=== PATIENT | female | born 1950 | race Caucasian/White ===

== ENCOUNTER 2025-02-09 21:10 | Inpatient (IN) | payer MEDICARE, BC ==
[~2025-02-09] VITALS: Ht 162.6 cm; Wt 45.8 kg
[2025-02-09 22:39] LABS: APPEARANCE,URINE CLEAR (CLEAR); BLOOD, URINE TRACE-INTA Ery/uL (NEGATIVE); LEUKOCYTE ESTERASE ,URINE NEGATIVE (NEGATIVE); NITRITE, URINE NEGATIVE (NEGATIVE); UGLUCOSE NEGATIVE (NEGATIVE)
[2025-02-09 22:41] LABS: PLATELET COUNT (AUTO) 401 K/uL (150-450); RED BLOOD CELL COUNT(AUTO) 3.99 MIL/uL (4.0-5.2); RED CELL DISTRIBUTION WIDTH 13.2 % (11.5-15.0); WHITE BLOOD COUNT (AUTO) 19.7 K/uL (4.3-11.0)
[2025-02-09 22:49] LABS: ADD URINE CULTURE NO
[2025-02-09 22:51] LABS: CALCIUM, SERUM 8.8 mg/dL (8.5-10.1); CREATININE 0.5 mg/dL (0.6-1.3); SODIUM SERUM 129 mmol/L (136-145); UREA NITROGEN, BLOOD 15 mg/dL (7-18)
[2025-02-09 22:55] LABS: ASPARTATE AMINOTRANSFERASE 13 U/L (15-37); TOTAL PROTEIN, SERUM 7.2 g/dL (6.4-8.2)
[2025-02-09 22:56] LABS: ALCOHOL, BLOOD < 3 mg/dL (0-10)
[2025-02-09 23:00] LABS: LACTIC ACID 1.1 mmol/L (0.4-2.0)
[2025-02-09 23:17] LABS: AMPHETAMINE, URINE NEGATIVE (NEGATIVE); BARBITURATE, URINE NEGATIVE (NEGATIVE); BENZODIAZEPINE, URINE NEGATIVE (NEGATIVE); CANNABINOID, URINE NEGATIVE (NEGATIVE); COCCAINE, URINE NEGATIVE (NEGATIVE); OPIATE, URINE NEGATIVE (NEGATIVE)
[2025-02-09] MEDS ORDERED: CEFEPIME 1 GM VIAL ONE (23:37)
[2025-02-09] MEDS: CEFEPIME 1 GM in IV D5W 50 ML IV ONE (23:40)
[2025-02-09] MEDS: IV NS 0.9% 1,000 ML BAG IV ONE (23:40)
[2025-02-09] MEDS: LIDOCAINE 1% INJ 50 ML MDV IJ ONE (23:40)
[2025-02-10] VITALS (7 sets, daily range): BP systolic 133–169; BP diastolic 57–79; TEMP 97.4–102.1; O2SAT 92–99
[2025-02-10] MEDS ORDERED: DOSING PER PHARMACY-CEFEPIME IVPB XX PRN
[2025-02-10] MEDS ORDERED: MAGNESIUM HYDROXIDE 30 ML UDC PO PRN
[2025-02-10] MEDS ORDERED: ONDANSETRON HCL/PF 4 MG/2 ML VIAL IVP PRN
[2025-02-10] MEDS ORDERED: MAG HYDROX/AL HYDROX/SIMETH 30 ML UDC PO PRN
[2025-02-10] MEDS: ENOXAPARIN SODIUM 40 MG/0.4 ML DISP.SYRIN SQ SCH (01:01)
[2025-02-10] MEDS: ACETAMINOPHEN 325 MG TABLET PO PRN (01:06)
[2025-02-10] MEDS: IV NS 0.9% 1,000 ML IV PRN (01:13)
[2025-02-10] MEDS: MORPHINE SULFATE INJ 2 MG/ML DISP.SYRIN IV PRN (02:36)
[2025-02-10] MEDS: PANTOPRAZOLE 40 MG TABLET.DR PO SCH (07:40)
[2025-02-10] MEDS: CEFEPIME 1 GM in IV D5W 50 ML IV SCH (08:38)
[2025-02-10] MEDS ORDERED: CYAN100T9 PO (08:55)
[2025-02-10] MEDS ORDERED: MULT-594 PO (08:55)
[2025-02-10] MEDS ORDERED: ACET-868 PO (08:55)
[2025-02-10] MEDS ORDERED: ASPI-966 PO (08:55)
[2025-02-10] MEDS ORDERED: ASCO-352 PO (08:55)
[2025-02-10] MEDS ORDERED: DOSING PER PHARMACY-VANCOMYCIN IV XX PRN (11:30)
[2025-02-10] MEDS: VANCOMYCIN HCL 1.25 GM in IV D5W 250 ML IV ONE (12:53)
[2025-02-10] MEDS: HYDROMORPHONE 1 MG/1 ML DISP.SYRIN IV PRN (15:04)
[2025-02-10] MEDS: POTASSIUM CHLORIDE 20 MEQ POWDER PACKET PO ONE (20:06)
[2025-02-10 21:08] LABS: PLATELET COUNT (AUTO) 379 K/uL (150-450); RED BLOOD CELL COUNT(AUTO) 3.76 MIL/uL (4.0-5.2); RED CELL DISTRIBUTION WIDTH 13.3 % (11.5-15.0); WHITE BLOOD COUNT (AUTO) 18.3 K/uL (4.3-11.0)
[2025-02-10 21:35] LABS: PHOSPHORUS 1.8 mg/dL (2.5-4.9)
[2025-02-10 21:36] LABS: ASPARTATE AMINOTRANSFERASE 17.0 U/L (15-37); CALCIUM, SERUM 8.3 mg/dL (8.5-10.1); CREATININE 0.6 mg/dL (0.6-1.3); PHOSPHORUS 1.8 mg/dL (2.5-4.9); SODIUM SERUM 130.0 mmol/L (136-145); TOTAL PROTEIN, SERUM 6.4 g/dL (6.4-8.2); UREA NITROGEN, BLOOD 14.0 mg/dL (7-18)
[2025-02-11] VITALS: TEMP 98.4
[2025-02-11] MEDS: VANCOMYCIN 500 MG in IV D5W 100ml IV SCH (00:10)
[2025-02-11 07:21] LABS: PLATELET COUNT (AUTO) 357 K/uL (150-450); RED BLOOD CELL COUNT(AUTO) 3.70 MIL/uL (4.0-5.2); RED CELL DISTRIBUTION WIDTH 13.1 % (11.5-15.0); WHITE BLOOD COUNT (AUTO) 15.1 K/uL (4.3-11.0)
[2025-02-11 07:22] LABS: APPEARANCE,URINE CLEAR (CLEAR); BLOOD, URINE 1+ Ery/uL (NEGATIVE); LEUKOCYTE ESTERASE ,URINE NEGATIVE (NEGATIVE); NITRITE, URINE NEGATIVE (NEGATIVE); UGLUCOSE NEGATIVE (NEGATIVE)
[2025-02-11 07:34] LABS: CREATININE, URINE 70.6 MG/DL (30.0-125.0); URINE SODIUM, RANDOM 10.0 mmol/l (40-220); URINE TOTAL PROTEIN 110.6 mg/dL (0-11.9)
[2025-02-11 07:41] LABS: ASPARTATE AMINOTRANSFERASE 19.0 U/L (15-37); CALCIUM, SERUM 8.2 mg/dL (8.5-10.1); CREATININE 0.5 mg/dL (0.6-1.3); PHOSPHORUS 1.9 mg/dL (2.5-4.9); SODIUM SERUM 132.0 mmol/L (136-145); TOTAL PROTEIN, SERUM 6.1 g/dL (6.4-8.2); UREA NITROGEN, BLOOD 11.0 mg/dL (7-18)
[2025-02-11 08:00] VITALS: BP 133/51; TEMP 98.1; O2SAT 95
[2025-02-11 09:54] LABS: ADD URINE CULTURE NO; SQUAMOUS EPITHELIAL CELL,UR Few /HPF (None Seen)
[2025-02-11 09:57] LABS: EOSINOPHIL,URINE None Seen
[2025-02-11] MEDS: LIDOCAINE 1% INJ 50 ML MDV IJ ONE (10:03)
[2025-02-11] MEDS ORDERED: POTASSIUM PHOSPHATE MM 15 MMOL in IV NS 0.9% 250 ML IV SCH (14:00)
[2025-02-11] MEDS: POTASSIUM PHOSPHATE MM 7.5 MMOL in IV NS 0.9% 100 ML IV SCH (14:57)
[2025-02-11] MEDS: POTASSIUM CHLORIDE 20 MEQ TAB.PRT.SR PO ONE (14:57)
[2025-02-11 16:00] VITALS: BP 143/60; TEMP 98.4; O2SAT 94
[2025-02-11] MEDS: VALACYCLOVIR HCL 500 MG TABLET PO SCH (16:22)
[2025-02-11 17:11] LABS: LDL 48.0 mg/dL (0-99)
[2025-02-11] MEDS: ERYTHROMYCIN BASE OPHTH 3.5 GM TUBE RIGHTEYE SCH (18:34)
[2025-02-11 19:40] LABS: PLATELET COUNT (AUTO) 393 K/uL (150-450); RED BLOOD CELL COUNT(AUTO) 3.80 MIL/uL (4.0-5.2); RED CELL DISTRIBUTION WIDTH 13.1 % (11.5-15.0); WHITE BLOOD COUNT (AUTO) 16.7 K/uL (4.3-11.0)
[2025-02-11 19:59] LABS: CALCIUM, SERUM 8.4 mg/dL (8.5-10.1); CREATININE 0.6 mg/dL (0.6-1.3); SODIUM SERUM 129.0 mmol/L (136-145); UREA NITROGEN, BLOOD 13.0 mg/dL (7-18)
[2025-02-11 20:00] VITALS: BP 136/76; TEMP 100.6; O2SAT 91
[2025-02-11] MEDS: ATORVASTATIN 40 MG TABLET PO SCH (21:19)
[2025-02-12] VITALS: BP 128/68; TEMP 97.5; O2SAT 97
[2025-02-12 04:04] VITALS: BP 134/68; TEMP 97.5; O2SAT 97
[2025-02-12 08:59] VITALS: BP 137/65; TEMP 97.7; O2SAT 97
[2025-02-12] MEDS: VANCOMYCIN 1 GM in IV D5W 250ml IV SCH (12:32)
[2025-02-12] MEDS ORDERED: IOHEXOL-350 100 ML VIAL IV ONE (16:14)
[2025-02-12] MEDS ORDERED: IV NS 0.9% 250 ML IV ONE (16:14)
[2025-02-12 16:38] VITALS: BP 140/60; TEMP 97.5; O2SAT 94
[2025-02-12 20:00] VITALS: BP 148/66; TEMP 97.9; O2SAT 95
[2025-02-13] VITALS: BP 157/76; TEMP 97.5; O2SAT 95
[2025-02-13 04:00] VITALS: BP 153/58; TEMP 98.1; O2SAT 98
[2025-02-13 06:07] LABS: HSV 1 IgG, TYPE SPECIFIC Reactive (Non Reactive)
[2025-02-13 06:42] LABS: PLATELET COUNT (AUTO) 397 K/uL (150-450); RED BLOOD CELL COUNT(AUTO) 4.31 MIL/uL (4.0-5.2); RED CELL DISTRIBUTION WIDTH 13.6 % (11.5-15.0); WHITE BLOOD COUNT (AUTO) 18.4 K/uL (4.3-11.0)
[2025-02-13 07:07] LABS: CALCIUM, SERUM 8.5 mg/dL (8.5-10.1); CREATININE 0.7 mg/dL (0.6-1.3); PHOSPHORUS 1.8 mg/dL (2.5-4.9); SODIUM SERUM 133.0 mmol/L (136-145); UREA NITROGEN, BLOOD 13.0 mg/dL (7-18)
[2025-02-13 08:00] VITALS: BP 155/71; TEMP 98.1
[2025-02-13 08:07] LABS: FOLIC ACID 15.2 ng/mL (>3.0)
[2025-02-13] MEDS: POTASSIUM CHLORIDE 20 MEQ TAB.PRT.SR PO SCH (11:35)
[2025-02-13 12:00] VITALS: BP 154/70; TEMP 99
[2025-02-13] MEDS: K PHOS NEUTRAL 250 MG TABLET PO ONE (15:35)
[2025-02-13 20:00] VITALS: BP 153/74; TEMP 97.9; O2SAT 95; O2SAT 96
[2025-02-14] VITALS: BP 155/84; TEMP 97.5; O2SAT 95
[2025-02-14 04:00] VITALS: BP_SYST 155; BP_SYST 158; BP_DIAS 73; TEMP 98.2; O2SAT 95
[2025-02-14 07:03] LABS: PLATELET COUNT (AUTO) 473 K/uL (150-450); RED BLOOD CELL COUNT(AUTO) 4.11 MIL/uL (4.0-5.2); RED CELL DISTRIBUTION WIDTH 13.4 % (11.5-15.0); WHITE BLOOD COUNT (AUTO) 15.1 K/uL (4.3-11.0)
[2025-02-14 07:19] LABS: CALCIUM, SERUM 8.7 mg/dL (8.5-10.1); CREATININE 0.6 mg/dL (0.6-1.3); PHOSPHORUS 2.4 mg/dL (2.5-4.9); SODIUM SERUM 133.0 mmol/L (136-145); UREA NITROGEN, BLOOD 10.0 mg/dL (7-18)
[2025-02-14 07:30] VITALS: BP 161/73; TEMP 98.1; O2SAT 96
[2025-02-14] MEDS: POTASSIUM CL. PREMIX PERIPHER. 50 ML IV SCH (11:53)
[2025-02-14] MEDS: VANCOMYCIN 750 MG in IV D5W 250 ML IV SCH (14:34)
[2025-02-14 15:07] LABS: *HSV 1 DNA PCR Negative (Negative); *HSV 2 DNA PCR Negative (Negative)
[2025-02-14] MEDS ORDERED: K PHOS NEUTRAL 250 MG TABLET PO SCH (15:30)
[2025-02-14] MEDS: POTASSIUM CHLORIDE 20 MEQ TAB.PRT.SR PO ONE (18:27)
[2025-02-15 11:08] LABS: METHYLMALONIC ACID 144.0 nmol/L (0-378)
== END 2025-02-14 20:00 | DRG 85 ==
LOC: ER 21:19 → TELE 23:32 → MED 02-10 15:10 → TELE 02-11 15:33
PROVIDERS: ADMIT Nurse Practitioner Family
PROC: 0PSHXZZ Reposition Right Radius, External Approach (ICD-10-PCS; 2025-02-09)
PROC: 0PSHXZZ Reposition Right Radius, External Approach (ICD-10-PCS; principal; 2025-02-11)
DX: S06.6X0A Traumatic subarachnoid hemorrhage without loss of consciousness, initial encounter (principal); G92.8 Other toxic encephalopathy; S52.551A Other extraarticular fracture of lower end of right radius, initial encounter for closed fracture; G45.9 Transient cerebral ischemic attack, unspecified; E44.1 Mild protein-calorie malnutrition; E87.1 Hypo-osmolality and hyponatremia; Z68.1 Body mass index [BMI] 19.9 or less, adult; S52.611A Displaced fracture of right ulna styloid process, initial encounter for closed fracture; R40.2142 Coma scale, eyes open, spontaneous, at arrival to emergency department; R40.2362 Coma scale, best motor response, obeys commands, at arrival to emergency department; R40.2252 Coma scale, best verbal response, oriented, at arrival to emergency department; Y93.9 Activity, unspecified; E86.0 Dehydration; E03.9 Hypothyroidism, unspecified; E87.6 Hypokalemia; E86.1 Hypovolemia; W01.0XXA Fall on same level from slipping, tripping and stumbling without subsequent striking against object, initial encounter; D72.829 Elevated white blood cell count, unspecified; M16.0 Bilateral primary osteoarthritis of hip; E88.09 Other disorders of plasma-protein metabolism, not elsewhere classified; R26.81 Unsteadiness on feet; R47.81 Slurred speech; R73.9 Hyperglycemia, unspecified; H10.9 Unspecified conjunctivitis; G51.0 Bell's palsy; R29.6 Repeated falls; Y92.009 Unspecified place in unspecified non-institutional (private) residence as the place of occurrence of the external cause; R29.700 NIHSS score 0
CPT/HCPCS: 36415; 70450-TC; 70496-TC; 70498-TC; 70551-TC; 71045-TC; 71250-TC; 73110; 73521; 80048-TC; 80053-TC; 80061-TC; 80076-TC; 80202-TC; 81001; 82570-TC; 82607-TC; 83605-TC; 83735-TC; 83921; 83935-TC; 84100-TC; 84300-TC; 84425; 84443-TC; 84484-TC; 84550-TC; 85025-TC; 86695; 87040-TC; 87081-TC; 87086-TC; 92507-TC; 92521; 97110-TC; 97112-TC; 97530-TC; A4223; G0378; G0480; J0692; J1171; J1650; J2270; J3373; J3374; J3480; J3490; J7030; J7050; J7060; Q9967